=== PATIENT | male | born 1965 | race Caucasian/White ===

== ENCOUNTER 2025-01-31 07:21 | Emergency (ER) | payer OTHER, SELFPAY ==
[2025-01-31 07:24] VITALS: BP 160/86; PULSE 64; TEMP 36.8; O2SAT 98; BMI 24.0
--- NOTE | 2025-01-31 07:45 | ED.SKABFB1 ---
HPI - Skin/Abscess/Foreign Bdy General Chief complaint: Skin/Abscess/Foreign Body Stated complaint: BWC METAL SLIVER IN FINGER Time Seen by Provider: 01/31/25 07:33 Source: patient Mode of arrival: walk-in History of Present Illness HPI narrative: The patient is a 59-year-old male coming to us with a suspected work injury he mentioned that on Friday which is almost 4 days ago the patient noted that he have some swelling in his left middle finger, patient thinks that there is a fragment of metal in his middle finger and he apparently tried to take it out before arrival, the patient mentioned that he had this injury before Sometime he get infection his finger due to that Related Data Previous Rx's ?Medication ?Instructions ?Recorded amoxicillin 875 mg-potassium 1 tab PO Q12H #20 tabs 01/31/25 clavulanate 125 mg tablet Allergies Allergy/AdvReac Type Severity Reaction Status Date / Time No Known Drug Allergies Allergy Verified 01/31/25 07:29 Review of Systems ROS Status of ROS 10 or more systems reviewed and unremarkable except as noted in history and below PFSH PFSH Social History Little interest or pleasure in doing things: not at all Feeling down, depressed, or hopeless: not at all Exam Narrative Exam Narrative: Nurses notes and vital signs reviewed and patient is not hypoxic. General: Well-appearing and in no apparent distress. Skin: Warm, dry, no pallor noted. No rash. Head: Normocephalic, atraumatic. Left upper extremity: The patient have a swelling just beside the middle finger nailbed there is a area of redness there is no pus collection and there is no foreign body seen or any entry point, the patient is tender at the lateral aspect of the nailbed Neurological: A&O x4. No cranial nerve dysfunction observed. No truncal ataxia. Moves all extremities. Sensation intact. Psychiatric: Cooperative and interactive. Normal mood and affect. Constitutional Vital Signs, click to edit/add: Last Vital Signs Temp 98.2 F 01/31/25 07:24 Pulse 60 01/31/25 08:40 Resp 16 01/31/25 08:40 BP 126/79 01/31/25 08:40 Pulse Ox 100 01/31/25 08:40 O2 Del Method Room Air 01/31/25 08:40 Course Vital Signs Vital signs: Vital Signs Temperature 98.2 F 01/31/25 07:24 Pulse Rate 64 01/31/25 07:24 Respiratory Rate 18 01/31/25 07:24 Blood Pressure 160/86 H 01/31/25 07:24 Pulse Oximetry 98 01/31/25 07:24 Oxygen Delivery Method Room Air 01/31/25 07:24 Temperature 98.2 F 01/31/25 07:24 Pulse Rate 60 01/31/25 08:40 Respiratory Rate 16 01/31/25 08:40 Blood Pressure 126/79 01/31/25 08:40 Pulse Oximetry 100 01/31/25 08:40 Oxygen Delivery Method Room Air 01/31/25 08:40 MDM - Skin/Abscess/Foreign Bdy MDM Narrative Medical decision making narrative: X-ray of the patient middle finger showed no foreign body But the patient right now possibly have paronychia with no pus to be drained at the moment the patient was instructed with the importance of warm water application in addition to was started on antibiotic Augmentin Patient last tetanus booster was 20 years ago and he was provided with tetanus booster here in the ER The patient to continue with the warm water and antibiotic and rest his left hand today The patient is to follow up with primary care physician in next 2-3 days or to return to the emergency department should any of the signs or symptoms worsen or new symptoms develop. The patient agrees with the following Diagnosis and Treatment plan and the patient will be discharged home. Discharge Plan Discharge Chief Complaint: Skin/Abscess/Foreign Body Clinical Impression: Paronychia Patient Disposition: Home, Self-Care Time of Disposition Decision: 08:19 Condition: Good Prescriptions / Home Meds: New amoxicillin-pot clavulanate 875-125 mg tablet 1 tab PO Q12H Qty: 20 0RF Print Language: Spanish Instructions: Paronychia (ED) Referrals: Physician,Non-Staff, MD [Primary Care Provider] - 1 week Discharge Date/Time: 01/31/25 08:42
[2025-01-31] MEDS: ADACEL DIPH,PERTUSS(ACELL),TET VAC/PF 0.5 ML ADULT SYRINGE IM (07:52)
--- NOTE | 2025-01-31 07:55 | XR_ITS ---
The [address] [address] Patient Name: VIOLETA THOMAS MRN: [id number] date: 1965 Sex: M Assigned Patient Location: ER Current Patient Location: ER Accession/Order Number: [id number] Exam Date: 01/31/2025 08:07 Report Date: 01/31/2025 08:08 At the request of: HAYLEY ALEJANDRA MD Procedure: XR finger LT min 2V XR finger LT min 2V 01/31/2025 7:55 AM SIGNS AND SYMPTOMS: ^middle finger possibe fb PROTOCOL: Frontal, lateral, and oblique radiographs of the left third digit COMPARISON: None FINDINGS: No abnormal radiopaque foreign body. The joint spaces are preserved. No fracture or subluxation. There is nonspecific soft tissue swelling. XR/XR finger LT min 2V IMPRESSION: Nonspecific soft tissue swelling is noted throughout the third digit. No abnormal radiopaque foreign body. Impression dictated by: Inderjit Melendez M.D. 01/31/2025 8:08 AM Dictation Location: [place] [address] Electronically authenticated by: [id number] Y Date: 01/31/2025 08:08
[2025-01-31 08:40] VITALS: BP 126/79; PULSE 60; O2SAT 100
== END 2025-01-31 08:42 | disposition home or self-care (01) ==
PROVIDERS: Emergency Provider Emergency Medicine
DX: L03.012 Cellulitis of left finger (principal); Z23 Encounter for immunization
CPT/HCPCS: 73140; 90471; 90715; 99284

== ENCOUNTER 2025-02-23 07:29 | Outpatient (OUT) | payer OTHER, SELFPAY ==
--- NOTE | 2025-02-23 07:44 | XR_ITS ---
The [place] [id number] Patient Name: VIOLETA THOMAS MRN: [id number] date: 1965 Sex: M Assigned Patient Location: [facility] Current Patient Location: [facility] Accession/Order Number: [id number] Exam Date: 02/23/2025 08:58 Report Date: 02/23/2025 08:59 At the request of: EVELYN WARD MD Procedure: XR finger LT min 2V LEFT THIRD FINGER- 3 views CLINICAL HISTORY: Pain, erythema and swelling at the distal third fingers since puncture injury 3 weeks ago. COMPARISON: None AP lateral and oblique views of the third finger were obtained. No fracture, dislocation or bony destruction is identified. No soft tissue swelling is seen. No radiopaque foreign bodies are noted. XR/XR finger LT min 2V IMPRESSION: NO ACUTE BONY INJURY OR RADIOPAQUE FOREIGN BODIES Impression dictated by: Rosa Melgar M.D. 02/23/2025 8:59 AM Dictation Location: [place] [address] Electronically authenticated by: [id number] Y Date: 02/23/2025 08:59
== END 2025-02-23 07:30 | disposition home or self-care (01) ==
LOC: RAD 07:30
PROVIDERS: Visit Provider Preventive Medicine Preventive Medicine/Occupational Environmental Medicine
DX: R09.A9 Foreign body sensation, other site (principal)
CPT/HCPCS: 73140